=== PATIENT | female | born 1940 | race Caucasian/White ===

== ENCOUNTER → 2017-01-21 | Outpatient (CLI) | payer MEDICARE, BC ==
[~2017-01-21] MED LIST: ALBUTEROL17 GM INH; AMLODIPINE BESYL5 MG PO; ASPIRIN; ASPIRIN325 M1 PO; ASPIRIN81 M2 PO; BAYER ASPIRIN325 M1 PO; BENICAR HCT 40-1 TAB; BENTYL10 MG PO; CELEBREX; CELEBREX PO; CELECOXIB200 MG PO; CYMBALTA; EFFEXOR XR150 MG PO; EFFEXOR-XR150 MG PO; EXFORGE 5-160 M1 TAB PO; FLEXERIL PO; FLEXERIL10 M1 PO; KLONOPIN0.25 MG/TA PO; KLONOPIN0.5 MG PO; KLOR-CON PO; LASIX20 MG PO; LEVOTHYROXINE50 MC1 PO; LEVOXYL50 MC1 PO; LIDOCAINE TOP; LIPITOR20 MG PO; LOSARTAN POTASS50 MG PO; MED FOR DEPRESSION; MEDROL4 MG/DOSE- PO; METOPROLOL TART25 MG PO; MOBIC PO; MOTRIN400 MG PO; MYRBETRIQ25 MG PO; NORVASC; PRAVACHOL PO; PRAVASTATIN SOD40 MG PO; PREDNISONE PO; PREMARIN PO; PREMARIN0.625 MG PO; PRILOSEC20 MG PO; PRISTIQ50 MG; PROTONIX PO; SINGULAIR; SINGULAIR PO; SPIRIVA18 MCG INH; SYMBICORT INH; SYNTHROID; TESSALON200 MG PO; TYLENOL PM; ZITHROMAX PO; ZOCOR; [UNRECOGNIZED DRUG - OTHER]; [UNRECOGNIZED DRUG - OTHER]
--- NOTE | ~2017-01-21 | MY11 ---
[facility] A Service [facility] RADIOLOGY TEXT RESULTS PATIENT: MARCELINO HUMPHREYS LOCATION: [facility] : 42 UNIT #: [id number] AGE: [address]: KENRICK HOOKS PA-C SEX: F ORDER DR: [id number] [address] [address] [id number] O MR#: [id number] Acc #: [id number] NAME: MARCELINO HUMPHREYS : 1940 SEX: F STUDY DATE/TIME: 01/21/2017 11:32 UNIT: SRAD ROOM: STUDY DESCRIPTION: MY Mammogram Screening Dig Williams Attending Physician: Kenrick Hooks Pa-C Referring Physician: Kenrick Hooks Pa-C Ordering Physician: Jj Lyon M.D. Primary Care Physician: Kenrick Hooks Pa-C MEDICAL IMAGING REPORT This report is preliminary unless electronic signature is present. EXAM Bilateral digital screening mammogram with CAD, 01/21/2017. INDICATION 76-year-old female for routine screening. No reported problems. No personal history of breast cancer. Family history positive in maternal grandmother. History of cyst removal on the left with benign results. TECHNIQUE CC and MLO views of the breast were obtained and reviewed with an FDA-approved CAD device. COMPARISONS 06/17/2009 FINDINGS Breast parenchyma is heterogeneously dense. This degrades sensitivity of screening mammography. The pattern is unchanged. There is no new dominant nodule or mass in either breast. No new suspicious cluster of microcalcifications. Faint benign-appearing calcifications are present. IMPRESSION Benign screening mammogram. 1-year followup recommended. Patients over the age of 40 are entered into a reminder system with target due date for the next mammogram. A result letter will also be sent to the patient. BIRADS: 2 Benign finding. [facility] A Service [facility] RADIOLOGY TEXT RESULTS PATIENT: MARCELINO HUMPHREYS LOCATION: [facility] : 42 UNIT #: [id number] AGE: [address]: KENRICK HOOKS PA-C SEX: F ORDER DR: Dictated by... Fritz Portillo M.D. THIS IS AN ELECTRONICALLY VERIFIED REPORT Fritz Portillo M.D. at 01/21/2017 3:39 PM YAAKOV/sheryl TD: 01/21/2017 14:40 JOB #: [id number] MEDICAL IMAGING REPORT
--- NOTE | ~2017-01-21 | BD1 ---
[facility] A Service of [facility] RADIOLOGY TEXT RESULTS PATIENT: MARCELINO HUMPHREYS LOCATION: [facility] : 42 UNIT #: [id number] AGE: [address]: KENRICK HOOKS PA-C SEX: F ORDER DR: [id number] [address] [address] [id number] O MR#: [id number] Acc #: [id number] NAME: MARCELINO HUMPHREYS : 1940 SEX: F STUDY DATE/TIME: 01/21/2017 10:24 UNIT: SRAD ROOM: STUDY DESCRIPTION: Dexa Bone Dens 1+ Site Attending Physician: Kenrick Hooks Pa-C Referring Physician: Kenrick Hooks Pa-C Ordering Physician: Jj Lyon M.D. Primary Care Physician: Kenrick Hooks Pa-C MEDICAL IMAGING REPORT This report is preliminary unless electronic signature is present. EXAM DXA scan 01/21/2017 HISTORY Status post menopause with no hormone replacement therapy. Osteopenia. Thyroid medication. Smoking history for 55 years. FINDINGS Bone mineral density in the lumbar spine from L1-L4 was 0.989 g/cm2 which is 1.6 standard deviations below the mean when compared to the young adult reference population which is characteristic of osteopenia. This is 0.6 standard deviations above the mean when compared to the age-matched population. Bone mineral density in the left femoral neck was 0.86 g/cm2 which is 1.3 standard deviations below the mean when compared to the young adult reference population which is characteristic of osteopenia. This is 0.9 standard deviations above the mean when compared to the age-matched population. Bone mineral density in the right femoral neck was 0.835 g/cm2 which is 1.5 standard deviations below the mean when compared to the young adult reference population which is characteristic of osteopenia. This is 0.7 standard deviations above the mean when compared to the age-matched population. Compared with 06/17/2009, there has been a decrease in bone mineral density in the left hip of 7.3%. IMPRESSION Bone mineral density in the lumbar spine and the hips bilaterally characteristic of osteopenia. Dictated by... Chung Garcia M.D. THIS IS AN ELECTRONICALLY VERIFIED REPORT [facility] A Service of [facility] RADIOLOGY TEXT RESULTS PATIENT: MARCELINO HUMPHREYS LOCATION: [facility] : 42 UNIT #: [id number] AGE: [address]: KENRICK HOOKS PA-C SEX: F ORDER DR: Chung Garcia M.D. at 01/21/2017 4:58 PM IRIS/marlene TD: 01/21/2017 13:48 JOB #: [id number] MEDICAL IMAGING REPORT
== END | disposition home or self-care (01) ==
LOC: SRAD 10:04
DX: Z12.31 Encounter for screening mammogram for malignant neoplasm of breast (principal); M81.0 Age-related osteoporosis without current pathological fracture; Z78.0 Asymptomatic menopausal state; Z80.3 Family history of malignant neoplasm of breast
CPT/HCPCS: 77080; G0202

== ENCOUNTER → 2017-02-17 | Outpatient (CLI) | payer MEDICARE, BC ==
--- NOTE | ~2017-02-17 | CT55 ---
[facility] A Service of [facility] RADIOLOGY TEXT RESULTS PATIENT: MARCELINO HUMPHREYS [facility] 42 UNIT #: [id number] AGE: [address]: Devonte Garcai MD SEX: F ORDER DR: [id number] [facility] [address] [place], [place] [address] [id number] O MR#: [id number] Acc #: [id number] NAME: MARCELINO HUMPHREYS. : 1940 SEX: F STUDY DATE/TIME: 02/17/2017 16:31 UNIT: [facility] ROOM: STUDY DESCRIPTION: CT Chest W Con Attending Physician: Devonte Garcia M.D. Referring Physician: Devonte Garcia M.D. Ordering Physician: Devonte Garcia M.D. Primary Care Physician: Devonte Garcia M.D. MEDICAL IMAGING REPORT This report is preliminary unless electronic signature is present EXAM CT of the chest with contrast. INDICATIONS Follow up nodules seen on CT of the abdomen and pelvis. TECHNIQUE CT of the chest was performed following the administration of IV contrast. Coronal and sagittal reformatted images were obtained. This CT exam was performed with one or more of the following radiation dose reduction techniques: automatic exposure control, adjustment of mA and/or kV according to patient size, and iterative reconstruction. COMPARISON No comparison chest CTs are available. Comparison with a CT of the abdomen and pelvis from 12/16/2016. FINDINGS There are postoperative changes of ascending aortic graft repair. The repair graft is widely patent. There is aneurysmal dilatation of the upper descending thoracic aorta measuring about 4.4 cm in greatest dimension. The mid thoracic aorta is also aneurysmal, measuring about 3.9 cm in greatest dimension. The distal descending thoracic aorta tapers to a more normal caliber. There is no lymphadenopathy or pleural effusion. Evaluation of the lungs demonstrates decrease in the nodular density in the base of the right middle lobe. This likely reflects decreasing atelectasis. There is emphysema. There is no suspicious pulmonary nodule. Limited imaging of the upper abdomen demonstrates a cholecystectomy. The bone windows demonstrate old rib fractures on the left. IMPRESSION 1. The previously noted nodular density in the base of the right middle STS. [facility] A Service of [facility] RADIOLOGY TEXT RESULTS PATIENT: MARCELINO HUMPHREYS LOCATION: [facility] : 42 UNIT #: [id number] AGE: [address]: Devonte Garcia MD SEX: F ORDER DR: lobe is significantly smaller and most likely represents resolving atelectasis. There is no suspicious pulmonary nodule. 2. Postoperative changes from ascending aortic graft repair. 3. Aneurysmal dilatation of the descending thoracic aorta as described above with maximum dimension of 4.4 cm. Dictated by... Amish Diaz M.D. THIS IS AN ELECTRONICALLY VERIFIED REPORT Amish Diaz M.D. at 02/18/2017 5:03 PM WALDEMAR/chato TD: 02/18/2017 10:33 JOB #: [id number] MEDICAL IMAGING REPORT Page 1 of 1 COPY
[2017-02-17 22:40] LABS: POC - CREATININE 1.05 mg/dL (0.44-1.03)
== END | disposition home or self-care (01) ==
LOC: CCAT 15:28
PROVIDERS: Internal Medicine
DX: J98.4 Other disorders of lung (principal); R93.5 Abnormal findings on diagnostic imaging of other abdominal regions, including retroperitoneum; I71.2 Thoracic aortic aneurysm, without rupture; Z98.890 Other specified postprocedural states
CPT/HCPCS: 71260; 82565; Q9967

== ENCOUNTER → 2017-05-05 | Outpatient (CLI) | payer MEDICARE, BC ==
--- NOTE | ~2017-05-05 | CT55 ---
[facility] A Service of [facility] RADIOLOGY TEXT RESULTS PATIENT: MARCELINO HUMPHREYS [facility] : 42 UNIT #: [id number] AGE: [address]: Devonte Garcia MD SEX: F ORDER DR: [id number] [facility] [address] [place], [place] [address] [id number] O MR#: [id number] Acc #: [id number] NAME: MARCELINO HUMPHREYS. : 1940 SEX: F STUDY DATE/TIME: 05/05/2017 16:06 UNIT: [facility] ROOM: STUDY DESCRIPTION: CT Chest W Con Attending Physician: Devonte Garcia M.D. Referring Physician: Devonte Garcia M.D. Ordering Physician: Devonte Garcia M.D. Primary Care Physician: Devonte Garcia M.D. MEDICAL IMAGING REPORT This report is preliminary unless electronic signature is present EXAM CT chest with contrast. DATE 05/05/17 HISTORY Lung nodules seen on CT 02/17/17. Previous history of open-heart surgery and cholecystectomy. Hypertension. COMPARISON CT chest with contrast 02/17/17, CT abdomen and pelvis lung windows 12/16/16. PROCEDURE 5 mL axial images through from the thoracic inlet through the upper abdomen after intravenous contrast administration. Sagittal and coronal reformed images were obtained. This CT exam was performed with one or more of the following radiation dose reduction techniques: Automatic exposure control, adjustment of mA and/or kV according to patient size, and iterative reconstruction. FINDINGS Right middle lobe atelectasis is completely resolved, particularly when compared to the more remote CT from 12/16/16. Emphysematous changes are present. No acute airspace disease. Surgical changes of ascending aortic repair are redemonstrated. The mid ascending aorta measures about 4.2 cm, unchanged. The proximal descending thoracic aorta measures about 4.5 cm, not significantly changed from 4.4 cm on 02/17/17. The mid descending thoracic aorta measures 4 cm compared to 3.9 cm on 02/17/17. The distal descending thoracic aorta tapers and [facility] A Service of [facility] & [facility] RADIOLOGY TEXT RESULTS PATIENT: MARCELINO HUMPHREYS LOCATION: [facility] : 42 UNIT #: [id number] AGE: [address]: Devonte Garcia MD SEX: F ORDER DR: measures roughly 3 cm at the level of the diaphragmatic hiatus, unchanged. Infrarenal abdominal aorta is of normal caliber, 2.6 cm. There is mild irregular plaquing within the distal descending thoracic aorta, but no dissection is identified. Great arteries arising from the arch in a conventional pattern are widely patent. Celiac artery and SMA and the bilateral renal arteries appear patent. CABG changes. Cholecystectomy. Spleen, pancreas, adrenals and kidneys within normal limits. No acute osseous abnormalities. Old left rib fractures redemonstrated. IMPRESSION 1. No suspicious pulmonary nodules. The nodular region of atelectasis seen on the 12/16/16 CT has resolved. 2. Emphysema. 3. Surgical changes of ascending aortic repair. Aneurysmal dilation of the descending thoracic aorta, as described in the report, is not significantly changed from 02/17/17. No dissection. 4. CABG changes. 5. Old left rib fractures. 6. Cholecystectomy. Dictated by... Tana Carlin M.D. THIS IS AN ELECTRONICALLY VERIFIED REPORT Tana Carlin M.D. at 05/06/2017 11:45 AM MICHAEL/luigi TD: 05/06/2017 08:45 JOB #: [id number] MEDICAL IMAGING REPORT Page 1 of 1 COPY
== END | disposition home or self-care (01) ==
LOC: CCAT 13:00
DX: R93.5 Abnormal findings on diagnostic imaging of other abdominal regions, including retroperitoneum (principal); R93.8 Abnormal findings on diagnostic imaging of other specified body structures; J98.11 Atelectasis; I71.2 Thoracic aortic aneurysm, without rupture; Z95.1 Presence of aortocoronary bypass graft; Z98.890 Other specified postprocedural states; Z90.49 Acquired absence of other specified parts of digestive tract
CPT/HCPCS: 71260; Q9967

== ENCOUNTER → 2017-05-05 | Outpatient (CLI) | payer MEDICARE, BC ==
[2017-05-05 16:46] LABS: POC - CREATININE 0.77 mg/dL (0.44-1.03); POC - GFR >60.0 mL/min (>60)
== END | disposition home or self-care (01) ==
LOC: CRC 14:35
PROVIDERS: Internal Medicine
DX: J44.9 Chronic obstructive pulmonary disease, unspecified (principal)
CPT/HCPCS: 82565; 94010; 94060; 94726

== ENCOUNTER → 2017-06-23 | Outpatient (CLI) | payer MEDICARE, BC ==
--- NOTE | ~2017-06-23 | CR181 ---
[facility] A Service of [facility] & [facility] RADIOLOGY TEXT RESULTS PATIENT: MARCELINO HUMPHREYS LOCATION: [facility] : 42 UNIT #: [id number] AGE: [address]: Devonte Garcia MD SEX: F ORDER DR: [id number] [place] [id number] O MR#: [id number] Acc #: [id number] NAME: MARCELINO HUMPHREYS : 1940 SEX: F STUDY DATE/TIME: 06/23/2017 13:01 UNIT: [facility] ROOM: STUDY DESCRIPTION: CR Lumbar Spine 2 or 3 Views Attending Physician: Devonte Garcia M.D. Ordering Physician: Devonte Garcia M.D. Primary Care Physician: Devonte Garcia M.D. MEDICAL IMAGING REPORT This report is preliminary unless electronic signature is present. EXAM Lumbar spine 06/23 INDICATIONS Low back pain chronically since the . No trauma. FINDINGS 3 views of the lumbar spine are obtained. No comparison. No lumbar compression fractures are seen. Alignment is within normal limits. There is degenerative disc space narrowing at L5-S1, and there is also bilateral facet arthropathy at this level. Incidental note is made of diffuse atherosclerotic disease. IMPRESSION Degenerative disease, most severe at L5-S1. No fracture or malalignment identified. Dictated by... Silver Javed Jr., M.D. THIS IS AN ELECTRONICALLY VERIFIED REPORT Silver Javed Jr., M.D. at 06/24/2017 4:33 PM CARA/ramírez TD: 06/23/2017 20:07 JOB #: [id number] MEDICAL IMAGING REPORT Page 1 of 1
--- NOTE | ~2017-06-23 | CR63 ---
[facility] A Service of [facility] RADIOLOGY TEXT RESULTS PATIENT: MARCELINO HUMPHREYS LOCATION: [facility] : 42 UNIT #: [id number] AGE: [address]: Devonte Garcia MD SEX: F ORDER DR: [id number] [address] [address] [id number] O MR#: [id number] Acc #: [id number] NAME: MARCELINO HUMPHREYS : 1940 SEX: F STUDY DATE/TIME: 06/23/2017 13:01 UNIT: [facility] ROOM: STUDY DESCRIPTION: CR Chest 2 View Attending Physician: Devonte Garcia M.D. Ordering Physician: Devonte Garcia M.D. Primary Care Physician: eDvonte Garcia M.D. MEDICAL IMAGING REPORT This report is preliminary unless electronic signature is present. EXAM Chest, 06/23/2017, [facility]. HISTORY 77-year-old woman, back pain with history of cough, congestion, short of breath. Possible lung nodule. Long-term smoker, 55 years. COMPARISON Chest, 12/16/2016. FINDINGS Two-view chest demonstrates stable cardiomegaly and stable generalized thoracic aortic ectasia. Previous coronary bypass is noted. Lungs are hyperinflated with flattened diaphragms. I see no infiltrates and no nodule. There are two old healed left rib fractures. IMPRESSION Atherosclerotic cardiovascular disease with stable cardiomegaly and stable thoracic aortic ectasia. COPD with no acute chest finding. Dictated by... Mak Moser M.D. THIS IS AN ELECTRONICALLY VERIFIED REPORT Mak Moser M.D. at 06/24/2017 8:09 AM ZAID/sheryl TD: 06/23/2017 16:04 JOB #: [id number] [facility] A Service of [facility] RADIOLOGY TEXT RESULTS PATIENT: MARCELINO HUMPHREYS LOCATION: [facility] : 42 UNIT #: [id number] AGE: [address]: Devonte Garcia MD SEX: F ORDER DR: MEDICAL IMAGING REPORT Page 1 of 1
== END | disposition home or self-care (01) ==
LOC: SRAD 12:30
DX: M54.5 Low back pain (principal); F17.200 Nicotine dependence, unspecified, uncomplicated; M51.37 Other intervertebral disc degeneration, lumbosacral region; I25.10 Atherosclerotic heart disease of native coronary artery without angina pectoris; I77.810 Thoracic aortic ectasia; J44.9 Chronic obstructive pulmonary disease, unspecified; I51.7 Cardiomegaly
CPT/HCPCS: 71020; 72100